=== PATIENT | female | born 1970 | race Caucasian/White ===

== ENCOUNTER → 2020-03-27 | Outpatient (CLI) | payer OTHER ==
[~2020-03-27] MED LIST: LOSA-73 PO
== END ==
LOC: LAB 14:15
PROVIDERS: ATTEND Obstetrics & Gynecology
DX: Z01.818 Encounter for other preprocedural examination (principal); Z11.59 Encounter for screening for other viral diseases; I10 Essential (primary) hypertension
CPT/HCPCS: 36415; U0003; C9803-CS

== ENCOUNTER → 2020-03-30 | Outpatient (CLI) | payer OTHER ==
--- NOTE | 2020-03-27 15:22 | EKG ---
[facility] [address] [place] [address] Test Date: 2020-03-27 Test Time: 15:18:03 Pat Name: MARY OAKLEY Department: Room: Gender: F Coder: CHRISTELLE : 1970 Requested By: WAN JUSTICE Order Number: [id number] Reading MD: Michael Paulino Measurements Intervals [place] Rate: 73 P: 48 NE: 156 QRS: 47 QRSD: 86 T: 39 QT: 362 QTc: 402 Interpretive Statements SINUS RHYTHM MILD NONSPECIFIC T WAVE INVERSION IN V1 Electronically Signed On 03-30-2020 16:39:22 CDT by Michael Paulino
[2020-03-27 15:56] LABS: BASO % 1 % (0-3); EOS # 0.1 x10^3/uL (0.0-0.7); EOS % 1 % (0-3); HEMATOCRIT 39.7 % (36.0-47.0); LYMPH # 2.3 x10^3/uL (1.0-4.8); LYMPH % 27 % (24-48); MEAN CORPUSCULAR HEMOGLOBIN 26 pg (25-35); MEAN CORPUSCULAR HGB CONC 33 g/dL (31-37); MEAN CORPUSCULAR VOLUME 80 fL (79-100); MONO # 0.6 x10^3/uL (0.0-1.1); MONO % 7 % (0-9); NEUT # 5.6 x10^3/uL (1.8-7.7); NEUT % 65 % (31-73); PLATELET COUNT 332 x10^3/uL (140-400); RED BLOOD COUNT 4.94 x10^6/uL (3.50-5.40); RED CELL DISTRIBUTION WIDTH 15.4 % (11.5-14.5); WHITE BLOOD COUNT 8.6 x10^3/uL (4.0-11.0)
--- NOTE | 2020-03-27 16:00 | RAD ---
PA and lateral views of the chest. Comparison: None. Indication: Preop hysterectomy Findings: The heart size is normal. No pneumothorax or effusion. No air space or interstitial disease. The bony structures are intact. Impression: 1. No acute cardiopulmonary process. Electronically signed by: Chadwick Gaytan MD (03/27/2020 3:57 PM) [id number]
[2020-03-27 16:10] LABS: BILIRUBIN,URINE NEGATIVE (NEG); CLARITY,URINE CLEAR; COLOR,URINE YELLOW; NITRITE,URINE NEGATIVE (NEG); PROTEIN,URINE NEGATIVE (NEG-TRACE); UROBILINOGEN,URINE 0.2 mg/dL (0.2 mg/dL)
[2020-03-27 16:15] LABS: ALBUMIN 3.8 g/dL (3.4-5.0); CALCIUM 8.2 mg/dL (8.5-10.1); GFR 59.2; POTASSIUM 3.2 mmol/L (3.5-5.1); TOTAL BILIRUBIN 0.2 mg/dL (0.2-1.0); TOTAL PROTEIN 7.6 g/dL (6.4-8.2)
[2020-03-27 16:40] LABS: BACTERIA,URINE FEW /HPF (0-FEW); SQUAMOUS EPITHELIAL CELL,UR MOD /LPF; WBC,URINE >40 /HPF (0-4)
[2020-03-30 14:03] LABS: BILIRUBIN,URINE NEGATIVE (NEG); CLARITY,URINE CLEAR; COLOR,URINE YELLOW; NITRITE,URINE NEGATIVE (NEG); PROTEIN,URINE NEGATIVE (NEG-TRACE); UROBILINOGEN,URINE 0.2 mg/dL (0.2 mg/dL)
[2020-03-30 14:14] LABS: SQUAMOUS EPITHELIAL CELL,UR MOD /LPF
[2020-03-30 14:15] LABS: BACTERIA,URINE 0 /HPF (0-FEW); RBC,URINE 0 /HPF (0-2)
== END | disposition home or self-care (01) ==
LOC: SURGPAT 13:38
PROVIDERS: ATTEND Obstetrics & Gynecology
DX: Z01.818 Encounter for other preprocedural examination (principal); I10 Essential (primary) hypertension
CPT/HCPCS: 36415; 71046; 80053; 81001; 85025; 87086; 93005

== ENCOUNTER 2020-04-01 05:49 | Observation (INO) | payer OTHER ==
[2020-04-01] VITALS (7 sets, daily range): BP systolic 120–130; BP diastolic 70–75
[2020-04-01] MEDS ORDERED: HYDROmorphone 2 MG/ML VIAL IV PRN (07:00)
[2020-04-01] MEDS ORDERED: ceFAZolin 2GM PREMIX 2 GM/50 ML BAG IV ONE (07:00)
[2020-04-01] MEDS ORDERED: ONDANSETRON PF 4 MG/2 ML VIAL. IV PRN ×2 (07:00→10:00)
[2020-04-01] MEDS ORDERED: MORPHINE SULFATE 2 MG/ML VIAL. IV PRN ×2 (07:00→10:00)
[2020-04-01] MEDS ORDERED: PROCHLORPERAZINE 10 MG/2 ML VIAL. IV PRN (07:00)
[2020-04-01] MEDS ORDERED: IV RINGERS,LACTATED 1000ML 1,000 ML IV SCH (07:00)
[2020-04-01] MEDS ORDERED: fentaNYL PF VIAL 100 MCG/2 ML VIAL IV PRN ×2 (07:00)
[2020-04-01] MEDS ORDERED: ESTROGENS, CONJ VAGINAL CREAM 30GM TUBE. ONE (07:04)
[2020-04-01] MEDS ORDERED: BUPIVACAINE-EPI 0.25%-1:200000 MPF 30 ML VIAL. ONE (07:04)
[2020-04-01] MEDS ORDERED: INDIGOTINDISULFONATE SODIUM 40 MG/5 ML AMPUL. ONE (07:04)
[2020-04-01] MEDS ORDERED: ONDANSETRON PF 4 MG/2 ML VIAL. ONE (07:15)
[2020-04-01] MEDS ORDERED: PROPOFOL 10 MG/ML (20ML) VIAL. IV ONE (07:15)
[2020-04-01] MEDS ORDERED: DEXAMETHASONE SOD PHOS 4 MG/ML VIAL ONE ×2 (07:15→08:30)
[2020-04-01] MEDS ORDERED: LIDOCAINE 2% PF 5 ML VIAL. ONE (07:15)
[2020-04-01] MEDS ORDERED: SUCCINYLCHOLINE 200 MG/10 ML VIAL. ONE (07:16)
[2020-04-01] MEDS ORDERED: MIDAZOLAM HCL/PF 2 MG/2 ML VIAL. ONE (07:16)
[2020-04-01] MEDS ORDERED: fentaNYL PF VIAL 100 MCG/2 ML VIAL ONE ×2 (07:16→09:35)
[2020-04-01] MEDS ORDERED: ROCURONIUM 50 MG/5 ML VIAL. ONE (07:16)
[2020-04-01] MEDS ORDERED: FAMOTIDINE 20 MG/2 ML VIAL ONE (07:20)
[2020-04-01] MEDS ORDERED: SEVOFLURANE 61 TO 120 MINUTES. IH ONE (08:11)
[2020-04-01] MEDS ORDERED: KETOROLAC 30 MG/ML VIAL. ONE (08:11)
[2020-04-01] MEDS ORDERED: GLYCOPYRROLATE 1 MG/5 ML VIAL. ONE (08:31)
[2020-04-01] MEDS ORDERED: NEOSTIGMINE METHYLSULFATE 5 MG/5 ML SYRINGE. ONE (08:32)
[2020-04-01] MEDS ORDERED: LOSARTAN POTASSIUM 25 MG TABLET. PO SCH (09:00)
[2020-04-01] MEDS ORDERED: ePHEDrine PF IN SALINE 50 MG/10 ML SYRINGE. IV ONE (09:41)
--- NOTE | 2020-04-01 09:56 | PDOC ---
BRIEF OPERATIVE NOTE Date: Apr 01, 2020 Pre-Op Diagnosis menorrhagia, enlarged uterus Post-Op Diagnosis same plus mild adhesive disease Procedure Performed LAVH/bilateral salpingectomy with lysis of adhesions Surgeon Dr. Wan Cameron Cafe Aide MAUDE Cruz Anesthesiologist Dr. Bauer Anesthesia Type: General Blood Loss 100cc IV Fluid 700cc Urine Output 300cc clear via nelson Specimens Obtained enlarged uterus, normal bilateral tubes and ovaries; mild adhesive disease letha left sided, had to be taken off near IP ligament; evidence of prior appy and damaso in pelvis Findings see specimen; specimen was cervix, uterus and bilateral tubes Complications none Operative Note [id number] WAN CAMERON MD Apr 01, 2020 09:56
[2020-04-01] MEDS ORDERED: 0.9 % SODIUM CHLORIDE 10 ML DISP.SYRIN. IV PRN (10:00)
[2020-04-01] MEDS ORDERED: oxyCODONE/APAP 5/325 1 TAB TABLET PO PRN (10:00)
[2020-04-01] MEDS ORDERED: CALCIUM CARBONATE 500 MG TAB.CHEW PO PRN (10:00)
[2020-04-01] MEDS ORDERED: NALOXONE 0.4 MG/ML VIAL. IV PRN (10:00)
[2020-04-01] MEDS ORDERED: diphenhydrAMINE HCL 25 MG CAPSULE PO PRN (10:00)
[2020-04-01] MEDS ORDERED: diphenhydrAMINE 50 MG/ML VIAL IV PRN (10:00)
[2020-04-01] MEDS ORDERED: MAG HYDROX/ALUMINUM HYD/SIMETH 30 ML ORAL.SUSP PO PRN (10:00)
[2020-04-01] MEDS ORDERED: MAGNESIUM HYDROXIDE 2,400 MG/30 ML ORAL.SUSP. PO PRN (10:00)
[2020-04-01] MEDS ORDERED: SIMETHICONE 80 MG TAB.CHEW PO PRN (10:00)
[2020-04-01] MEDS ORDERED: ZOLPIDEM 5 MG TABLET. PO PRN (10:00)
[2020-04-01] MEDS ORDERED: LACTULOSE 20 GM/30 ML SOLUTION. PO PRN (10:00)
[2020-04-01] MEDS ORDERED: PROCHLORPERAZINE 10 MG/2 ML VIAL. ONE (10:12)
--- NOTE | 2020-04-01 10:43 | OP ---
DATE OF SURGERY: 04/01/2020 PREOPERATIVE DIAGNOSIS: Menorrhagia with an enlarged uterus. POSTOPERATIVE DIAGNOSIS: Menorrhagia with an enlarged uterus plus mild adhesive disease. PROCEDURE: Laparoscopic-assisted vaginal hysterectomy, bilateral salpingectomy with lysis of adhesions. SURGEON: Wan Cameron MD TAXI CAB DRIVER: MAUDE Chew ANESTHESIOLOGIST: Dr. Bauer. ANESTHESIA: General. ESTIMATED BLOOD LOSS: 100 mL. URINE OUTPUT: 300 mL clear via Huffman catheter. INTRAVENOUS FLUIDS: 700 mL of crystalloid. FINDINGS: An enlarged uterus, normal bilateral tubes and ovaries, mild adhesive disease, especially on the left side that a little bit had to be taken off near the IP ligament, evidence of prior appendectomy with damaso in the pelvis. SPECIMENS: Cervix, uterus, bilateral tubes. COMPLICATIONS: None. DESCRIPTION OF PROCEDURE: This patient was taken to the operating room where general anesthesia was placed. The patient was placed in dorsal lithotomy position in Vidal stirrups. The patient's abdomen and vagina were both prepped and draped in the normal sterile fashion and a Huffman catheter had been inserted under sterile technique. Upon my arrival, a timeout was performed. Once everyone agreed on the patient, the allergy, the procedures, the antibiotics, the site, we went ahead and started. A bivalve speculum was placed in the patient's vagina. A single-tooth tenaculum was used to grasp the anterior lip of the cervix. A 10 mL of 0.25% Marcaine with epinephrine was used to circumferentially inject around the cervix for both hemodissection and hemostatic purposes later. The [employer] uterine manipulator was then placed through the endocervical os, locked on the single tooth tenaculum and the bivalve speculum was then removed. Top gloves were discarded and changed. Using the manipulator to push up, the pelvic uterus was able to be pushed about longterm at least between the pubic bone and the umbilicus, so I did go above the umbilicus where she had a previous scar, made a small incision, used curved Malia to dissect through the subcuticular layer to the fascia. The 5 mm Visiport was used to directly into the abdominal cavity. Opening patient pressure was 3-4 mmHg. Carbon dioxide gas was used to then appropriately insufflate the abdominal cavity to maintain a pressure of 15 mmHg. The patient was placed in Trendelenburg position. Right and left lower quadrant ports were placed under direct visualization, first transilluminating the abdominal cavity, finding an area clear of any vasculature, of course, making sure there was nothing on the other side and making a small incision and placing it under direct visualization. A 4-5 mL of air was placed in each of these cuffs. At this point, the scope was moved laterally to look at the umbilical port. Once it was assured to be in, in proper position, it was also insufflated with 4-5 mL of air. Scope was moved back to midline. The [place] and LigaSure were placed through the lateral ports and the filmy adhesions above the bowel, not on the actual colon, but the filmy adhesions pulling it up the left sidewall near the IP were very easily cut and then it was gently pulled down and bluntly just peeled off the sidewall, so I could see the IP ligament and follow the ureter down on the left side. The left tube and ovary were elevated. There was a small functional cyst that was drained, but the left ovary was normal, so going above the ovary, below the tube, doing a salpingectomy, cauterizing and cutting, then crossing the left round ligament and the left uterine ovarian pedicle, getting all the vasculature on the left side. This was done exactly the same on the right, elevating the right tube and ovary. The ovary was normal, finding the ureter coursing low in the pelvis, staying above the ovary, below the tube, doing a salpingectomy as the patient wished to retain her ovaries if they were normal, crossing the right round ligament, cauterizing and cutting with the LigaSure and then the right uteroovarian pedicle as well. Once this was done, the bladder flap was started in front of the round ligament. It was taken down easily and taken across by elevating it and using the monopolar hook to cut across and peel down. The bladder flap came down very nicely. The uterine vessels were obtained on both sides staying inside that pedicle and crossing contralaterally from the right port over to the left side, hugging the uterus and cervix pushing in cephalad and going down to the uterosacral, cauterizing and cutting and obtaining all the vasculature, then coming across on the right side, getting the uterines and then staying inside of it, taking small bites down to the uterosacral on the right side as well. The uterus was completely blanched. The posterior cul-de-sac was clear. So at this point, all instruments were removed from the abdomen and attention was turned vaginally. The single tooth and Valtchev were removed. A weighted speculum was placed in the patient's vagina. Thyroid Cary clamps were placed on the anterior and posterior lips of the cervix respectively. A scalpel was used to make a circumferential incision in the cervix. The cervix was elevated and the posterior cul-de-sac was sharply entered with curved Sawyer scissors. A #0 Vicryl stitch was used to secure the posterior peritoneum to the vaginal cuff. It was tagged with a curved Malia clamp. The needle was cut and passed off. The short weighted speculum was removed and replaced with the long weighted Willie speculum in the posterior cul-de-sac. At this point, sharply and bluntly, the bladder was taken off the cervix, initially sharply with using the Yankauer blunt suction to just gently push up while I used the scalpel to peel it off and then I used an open Ray-David 4 x 4 to gently push it up and off as well. It came off very nicely as well. So at this point, curved Melita clamps x 2 were placed on the left uterosacral ligament where they were doubly clamped with curved Heaneys, cut with Sawyer scissors and suture ligated x 2 with 0 Vicryl. Second one was taken through the vaginal cuff securing uterosacral ligament to the vaginal cuff. It was tied and tagged with a straight Malia clamp and the needle was cut and passed off. This was done exactly the same on the patient's right side. The uterosacral was doubly clamped with curved Heaneys, cut with Sawyer scissors, suture ligated x 2 with 0 Vicryl. Second one was taken through the vaginal cuff, tying it and tagging it with a straight Malia clamp, cutting and passing the needle off. I was able to make sure we were in, I was able to get on the patient's left side, I was able to take a right angle clamp around the remaining pedicle just to delineate it on the left side and the vaginal LigaSure was used to cauterize and cut the remaining pedicle. This side was completely free. I did the same thing on the right side. Once it was free, the cervix, uterus, bilateral tubes were actually delivered in total and passed off for permanent pathology. Ray-David been removed. A sponge stick was used to examine all the pedicles, they appeared to be hemostatic. The long speculum was removed from the posterior cul-de-sac and removed and replaced with the short weighted vaginal speculum again. A long Allis was used to grasp the anterior bladder peritoneum, 2-0 Vicryl was taken through the anterior bladder peritoneum, left uterosacral ligament, posterior peritoneum and right uterosacral ligament, thus closing the peritoneum in a pursestring like fashion. Once this was done, the right and left uterosacral tags were clipped and the cuff was closed in an anterior to posterior running locked fashion and tied to that posterior cuff tag. A few interrupted stitches were placed for hemostasis and strength. Once this was done, the cuff was completely hemostatic and all instruments were removed and bottom counts have been correct x 2 by OR personnel. All gloves were discarded and changed. Attention was turned back above for a second look where she was placed back in Trendelenburg, reinsufflated, copiously irrigated and found to be hemostatic. Tisseel was placed over the vaginal cuff. Both ovaries were intact and dry. The cuff looked good. The right and left pericolic gutters were clear. The right upper quadrant liver edge looked good. The bowel was grossly normal. So at this point, the syringe was used to deflate all 3 trocars from the 4-5 mL of air. The right and left lower quadrant ports were taken out under direct visualization. They were hemostatic. Gas was released from the umbilical port. All three port sites were closed with 4-0 nylon at the skin by Tammy and injected with local at the end. The patient was then awakened from anesthesia, extubated and has been brought to recovery room in stable condition. WAN CAMERON MD DR: STONE/christianne JOB#: [id number] / [id number]
[2020-04-01] MEDS: HYDROcodone/APAP 5/325MG 1 TAB TABLET PO PRN ×2 (12:14→17:39)
[2020-04-01 17:49] LABS: HEMATOCRIT 38.5 % (36.0-47.0); HEMOGLOBIN 12.5 g/dL (12.0-15.5); RED BLOOD COUNT 4.83 x10^6/uL (3.50-5.40); RED CELL DISTRIBUTION WIDTH 15.5 % (11.5-14.5); WHITE BLOOD COUNT 14.9 x10^3/uL (4.0-11.0)
--- NOTE | 2020-04-03 17:07 | PATHOLOGY ---
[facility] Accession Number: [id number] . 01 Material submitted: . uterus - UTERUS, CERVIX, AND BILATERAL FALLOPIAN TUBES. Modifiers: bilateral . 01 Clinical history: . enlarged uterus . 02 Diagnosis: Uterus and attached bilateral fallopian tubes, laparoscopic assisted vaginal hysterectomy with bilateral salpingectomy: - Adenomyosis, uterine corpus, with myometrial hypertrophy (uterine weight 211 grams). - Chronic cervicitis with focal squamous metaplasia. - Endocervical gland tunnel clusters, endocervix. - Inactive/atrophic pattern endometrium. - Congestion of bilateral fallopian tubes. LBQ 04/03/2020 1500 Local . 02 Comment: There is no atypia or evidence of malignancy. (JPM/db; 04/03/2020) . 02 Electronically signed: . Timmy Gibson MD, Pathologist NPI- [id number] . 01 Gross description: . The specimen is received in formalin, labeled "Michelle Lock, uterus cervix bilateral fallopian tubes" and consists of a 211 g uterus with cervix measuring 11.5 x 6.9 x 5.3 cm. Attached are the bilateral fimbriated fallopian tubes with the right measuring 7.5 cm in length and up to 0.5 cm in diameter and left measuring 6.6 cm in length and up to 0.5 cm in diameter. The uterine serosa is harris-gilliland smooth shiny. The gaping 2.5 cm cervical os is surrounded by roughened harris gilliland to pink ectocervical mucosa. It is bivalved to reveal a corrugated and cystic endocervical canal measuring 3.8 cm in length. The endometrial cavity is triangular measuring 5.5 cm in length and 4.6 cm in width which is lined by a pink-red endometrium measuring 0.2 cm. The myometrium is pink-gilliland and trabeculated measuring up to 3.1 cm with no nodules or gross lesions. The bilateral fallopian tubes are dark harris-purple with sectioning revealing a well-defined lumen and no gross lesions. Bottled Beverage Inspector sections are submitted as follows: . A1: Anterior cervix A2: Posterior cervix A3: Anterior endomyometrium A4: Posterior endomyometrium A5: Right fallopian tube A6: Left fallopian tube (SDY; 04/02/2020) SYU/SYU 04/02/2020 1446 Local . 02 Pathologist provided ICD-10: N80.0, N72, N87.9, N85.8 . 02 CPT . 766485 Specimen Comment: A courtesy copy of this report has been sent to [phone] Specimen Comment: Report sent to Performed at: 01 [facility] [address] [id number] MD Lance Luna MD Phone: [phone] Performed at: 02 [facility] [address] [place], [place] [id number] MD Timmy Gibson MD Phone: [phone]
== END 2020-04-01 18:40 | disposition home or self-care (01) ==
LOC: SURG 05:49 → 3 NORTH 10:00
PROVIDERS: ADMIT Obstetrics & Gynecology; ATTEND Obstetrics & Gynecology
DX: N92.0 Excessive and frequent menstruation with regular cycle (principal); N85.2 Hypertrophy of uterus; K66.0 Peritoneal adhesions (postprocedural) (postinfection)
CPT/HCPCS: 36415; 58552; 81025; 85027; 86850; 86900; 86901; 96374; 96375; A7015; G0378; G0379; J0330; J0696; J0780; J1100; J1200; J1885; J2250; J2270; J2405; J2704; J2710; J3010; J3490; J7030; 88307